=== PATIENT | male | born 1995 | race Caucasian/White ===

== ENCOUNTER 2018-01-28 18:36 | Emergency (ER) | payer OTHER ==
--- NOTE | 2018-01-28 19:34 | EDPHY ---
H & P Stated Complaint: R heel pain--jumped off porch ~2feet lst nite landed on feet Time Seen by Provider: 01/28/18 18:43 HPI/ROS: CHIEF COMPLAINT: Right foot pain HISTORY OF PRESENT ILLNESS: 22-year-old male presents with right foot pain. He fell off a 1st story balcony last evening and landed directly onto his right hill. Immediate onset of severe right heel pain and inability to ambulate. Remains unable to bear weight on the right heel today. No other injuries. He did not hit his head; no headache or neck pain. REVIEW OF SYSTEMS: complete 10 point ROS reviewed and is negative except for the noted elements in the HPI - Medical/Surgical History Hx Asthma: No Hx Chronic Respiratory Disease: No Hx Diabetes: No Hx Cardiac Disease: No Hx Renal Disease: No Hx Cirrhosis: No Hx Alcoholism: No Hx HIV/AIDS: No Hx Splenectomy or Spleen Trauma: No Other PMH: denies - Social History Smoking Status: Never smoked Alcohol Use: Sober - Physical Exam Exam: General Appearance: Alert, no distress Head: Atraumatic Eyes: No conjunctival erythema ENT, Mouth: no bony tenderness Neck: Nontender, full range of motion without pain Respiratory: No chest wall tenderness, lungs clear bilaterally Cardiovascular: Regular rate and rhythm Abdomen: Abdomen is soft and nontender Skin: No lacerations, no abrasions Back: No midline T/L/S tenderness Extremities: Right foot-normal inspection, tenderness over the posterior and inferior aspect of the calcaneus, no ecchymosis or swelling Vascular: 2+ pedal pulses Neurological: A&Ox3, normal motor function, normal sensory exam, cranial nerves intact Psychiatric: Mood and affect normal Constitutional: Initial Vital Signs Temperature (C) 36.7 C 01/28/18 18:38 Heart Rate 98 01/28/18 18:38 Respiratory Rate 16 01/28/18 18:38 Blood Pressure 119/79 01/28/18 18:38 O2 Sat (%) 99 01/28/18 18:38 O2 Delivery Mode Room Air Allergies/Adverse Reactions: No Known Allergies Allergy (Unverified 01/28/18 18:38) Home Medications: Medication Instructions Recorded Hydrocodone/APAP 5/325 [Franklin 1 - 2 tab PO Q4H PRN #10 tab 01/28/18 5/325] Medical Decision Making - Diagnostics Imaging Results: Imaging Impressions Foot X-Ray 01/28/18 18:41 Impression: Suspect nondisplaced posterior plantar oblique calcaneal fracture. Findings and recommendations discussed with emergency department physician, Susie Arroyo MD at 1855 hours on January 28, 2018. Final report concurs with initial preliminary interpretation. Extremity CT 01/28/18 19:08 Impression: Oblique nondisplaced fracture of the posterior plantar aspect of the right calcaneus. Findings and recommendations discussed with emergency department physician, Susie Arroyo MD at 1725 hours on January 28, 2018. Final report concurs with initial preliminary interpretation. Imaging: Discussed imaging studies w/ call center nurse Radiologist, I viewed and interpreted images myself Procedures: An OrthoGlass posterior splint was placed by the technology specialist. Neurovascularly intact after application. ED Course/Re-evaluation: This patient presents with severe right heel pain after a fall. X-ray reveals a possible calcaneus fracture. CT scan of the right foot obtained to clarify the fracture and reveals a calcaneus fracture. Results discussed with the patient. He was placed in an Orthoglass posterior splint. Discussed with patient's mother by phone. Follow up with Ortho. Differential Diagnosis: Differential diagnosis includes though it is not limited to open fracture, dislocation, tendon disruption, neurovascular compromise. Departure - Departure Disposition: Home, Routine, Self-Care Clinical Impression: Calcaneus fracture, right Qualifiers: Encounter type: initial encounter Calcaneus location: unspecified portion of calcaneus Fracture type: closed Fracture alignment: nondisplaced Qualified Code( s): S92.001A - Unspecified fracture of right calcaneus, initial encounter for closed fracture Condition: Good Instructions: Foot Fracture in Adults (ED) Additional Instructions: No weight-bearing on the right foot until your cleared by the orthopedic surgeon. Referrals: Irwin Montgomery MD [Medical Doctor] - As per Instructions (Call to make an appointment.) Prescriptions: Hydrocodone/APAP 5/325 [Franklin 5/325] 1 - 2 tab PO Q4H PRN #10 tab PRN Reason: Pain, Moderate
[2018-01-28 20:14] VITALS: BP 118/72
== END 2018-01-28 20:14 | disposition home or self-care (01) ==
PROC: 2W3SX1Z Immobilization of Right Foot using Splint (ICD-10-PCS; principal; 2018-01-28)
DX: S92.001A Unspecified fracture of right calcaneus, initial encounter for closed fracture (principal); W13.0XXA Fall from, out of or through balcony, initial encounter; Y99.8 Other external cause status